=== PATIENT | male | born 1950 | race Caucasian/White ===

== ENCOUNTER 2019-02-09 22:42 | Inpatient (IN) | payer MEDICARE ==
[~2019-02-09] VITALS: Ht 160 cm; Wt 59.0 kg
--- NOTE | 2019-02-09 23:31 | NUR ---
Sitter at bedside
[2019-02-09 23:33] LABS: BASOPHILS % (AUTO) 0.5 % (0.0-2.0); EOSINOPHILS # (AUTO) 0.3 K/uL (0.0-0.7); EOSINOPHILS % (AUTO) 3.2 % (0.0-7.0); HEMATOCRIT 39.3 % (36.7-47.1); HEMOGLOBIN 13.2 g/dL (12.5-16.3); LYMPHOCYTES # (AUTO) 2.6 K/uL (20.0-40.0); LYMPHOCYTES % (AUTO) 29.6 % (20.5-51.5); MEAN CORPUSCULAR HEMOGLOBIN 29.9 uug (23.8-33.4); MEAN CORPUSCULAR HGB CONC 34 g/dL (32.5-36.3); MEAN CORPUSCULAR VOLUME 88.9 fL (73.0-96.2); MONOCYTES # (AUTO) 0.8 K/uL (2.0-10.0); MONOCYTES % (AUTO) 9.5 % (0.0-11.0); NEUTROPHILS % (AUTO) 57.2 % (38.5-71.5); PLATELET COUNT (AUTO) 301 K/uL (152-348); RED BLOOD CELL COUNT(AUTO) 4.42 MIL/uL (4.06-5.63); WHITE BLOOD COUNT (AUTO) 8.8 K/uL (3.6-10.2)
[2019-02-09 23:45] LABS: CARBON DIOXIDE 25 mmol/L (21-32); CHLORIDE 102 mmol/L (98-107); CREATININE 0.9 mg/dL (0.6-1.3); GLUCOSE 100 mg/dL (74-106); POTASSIUM 3.6 mmol/L (3.5-5.1); UREA NITROGEN, BLOOD 7 mg/dL (7-18)
[2019-02-09 23:51] LABS: *BILIRUBIN,URIN 2+ (NEGATIVE); *BLOOD, URINE NEGATIVE (NEGATIVE); *COLOR,URINE YELLOW (YELLOW); *KETONES,URINE 4+ (NEGATIVE); LEUKOCYTE ESTERASE ,URINE TRACE (NEGATIVE); NITRITE, URINE NEGATIVE (NEGATIVE); UGLUCOSE NEGATIVE (NEGATIVE)
[2019-02-10] LABS: ALANINE AMINOTRANSFERASE 17 U/L (16-63); ALKALINE PHOSPHATASE 48 U/L (50-136); ASPARTATE AMINOTRANSFERASE 12 U/L (15-37); BILIRUBIN,DIRECT 0.2 mg/dL (0.0-0.2); BILIRUBIN,TOTAL 0.5 mg/dL (0.2-1.0); TOTAL PROTEIN, SERUM 6.5 g/dL (6.4-8.2)
[2019-02-10 00:01] LABS: ACETAMINOPHEN < 2.0 ug/mL (10-30)
[2019-02-10 00:05] LABS: *CLARITY,URINE CLEAR (CLEAR)
[2019-02-10 00:09] LABS: BACTERIA,URINE NONE SEEN /HPF (NONE SEEN); RBC,URINE 0-3 /HPF (0-3); SQUAMOUS EPITHELIAL CELL,UR FEW /HPF (NONE SEEN)
[2019-02-10 00:19] LABS: ETHANOL < 3 MG/DL (0-0)
--- NOTE | 2019-02-10 00:40 | NUR ---
pt cooperative and alert now but not oriented. pt answers "i dont know" to all orientation questions. denies pain and is calm. pt has 5150 sent from [employer]
[2019-02-10 00:59] LABS: THYROID STIMULATING HORMONE 3.491 mIU/mL (0.358-3.740)
--- NOTE | 2019-02-10 01:41 | NUR ---
no distress color good. report given to huan in bsu. and pt brought to floor with tech
[2019-02-10] MEDS ORDERED: ACETAMINOPHEN 325 MG TABLET PO PRN (01:45)
[2019-02-10] MEDS ORDERED: MAGNESIUM HYDROXIDE 30 ML LIQUID UDC PO PRN (01:45)
[2019-02-10] MEDS ORDERED: MAG HYDROX/AL HYDROX/SIMETH 30 ML LIQUID UDC PO PRN (01:45)
--- NOTE | 2019-02-10 02:42 | NUR ---
RECEIVED TO CARE, FROM THE ER, ON A 72 HOLD FOR GRAVELY DISABLED, A TRANSFER FROM [facility]. ACCORDING TO THE CHART AND HOLD, HE WAS FOUND WANDERING IN THE COMMUNITY. HE LIVES WITH HIS GIRLFRIEND, WHO TOOK HIM TO THE [facility], WHERE HE WAS FOUND TO BE MORE CONFUSED THAN USUAL. SHE TOOK HIM TO THE ER, WHERE HE WAS PLACED ON A HOLD. ACCORDING TO THE HOLD, HE STATED HE NO LONGER WISHED TO EAT, BECAUSE HE WAS GUILTY ABOUT POOR PEOPLE. 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 UPON ARRIVAL, HE WAS CONFUSED AND DISHEVELED/MALODOROUS. DENIED SUICIDAL OR HOMICIDAL IDEATIONS. UNABLE TO PROVIDE ANY INFORMATION, EVEN ABOUT WHERE HE IS, THE DATE, OR YEAR. HE WAS THEN ASSITED WITH A SHOWER, AND PLACED IN BED. OF THIS TIME, HE REMAINS ASLEEP. NO DISTRESS NOTED.
[2019-02-10 07:30] VITALS: BP 95/59
[2019-02-10] MEDS ORDERED: CEPH500C2 PO (11:23)
[2019-02-10] MEDS ORDERED: TAMS-3 PO (11:27)
[2019-02-10] MEDS ORDERED: DOXA2TAB2 PO (11:27)
[2019-02-10] MEDS ORDERED: CITA40TA11 PO (11:27)
[2019-02-10] MEDS ORDERED: CLON0.5T12 PO (11:43)
[2019-02-10] MEDS ORDERED: LEVO25TA9 PO (11:43)
[2019-02-10] MEDS ORDERED: AMIT10TA6 PO (11:43)
[2019-02-10] MEDS ORDERED: VENL37.515 PO (11:43)
[2019-02-10] MEDS: risperiDONE 0.5 MG TABLET PO SCH ×2 (12:47→21:18)
[2019-02-10 16:00] VITALS: BP 93/65
[2019-02-10] MEDS: VENLAFAXINE XR 37.5 MG CAP.SR.24H PO SCH (17:42)
[2019-02-10 20:00] VITALS: BP 117/67
[2019-02-10] MEDS: TEMAZEPAM 7.5 MG CAPSULE PO PRN (22:53)
[2019-02-11] MEDS: LEVOTHYROXINE SODIUM 25 MCG TABLET PO SCH (07:32)
[2019-02-11] MEDS: DOXAZOSIN 2 MG TABLET PO SCH (08:27)
[2019-02-11] MEDS: risperiDONE 0.5 MG TABLET PO SCH ×2 (08:27→20:20)
[2019-02-11] MEDS: TAMSULOSIN HCL 0.4 MG CAP.SR.24H PO SCH (08:27)
[2019-02-11] MEDS: VENLAFAXINE XR 37.5 MG CAP.SR.24H PO SCH ×2 (08:27→16:58)
[2019-02-11 10:40] VITALS: BP 103/69
[2019-02-11 15:37] VITALS: BP 110/71
--- NOTE | 2019-02-11 19:01 | NUR ---
Noted to be extremely anxious this afternoon. Offered to give ativan but refused to take it. Pt feeling scared and shaky, stated he is scared to be homeless. Pt's room mate continuously screaming and pt appears to be scared. will cont to monitor.
[2019-02-11] MEDS: LORAZEPAM 0.5 MG TABLET PO PRN (19:37)
[2019-02-11 20:00] VITALS: BP 115/71
[2019-02-11] MEDS: TEMAZEPAM 7.5 MG CAPSULE PO PRN (22:02)
[2019-02-12] MEDS: LEVOTHYROXINE SODIUM 25 MCG TABLET PO SCH (06:21)
[2019-02-12 07:30] VITALS: BP 110/65
[2019-02-12] MEDS: risperiDONE 0.5 MG TABLET PO SCH ×2 (08:50→20:24)
[2019-02-12] MEDS: TAMSULOSIN HCL 0.4 MG CAP.SR.24H PO SCH (08:50)
[2019-02-12] MEDS: VENLAFAXINE XR 37.5 MG CAP.SR.24H PO SCH ×2 (08:50→17:26)
[2019-02-12] MEDS: DOXAZOSIN 2 MG TABLET PO SCH (08:51)
--- NOTE | 2019-02-12 12:52 | NUR ---
patient continues intermittently delusional throughout am, verbalizing he his bleeding down his inner thigh patient pulling open pants and showing nurse his thigh are. No blood noted, patient redirected , continues to report visual hallucination of blood running down inner thigh, continue to provide reality reorientation.
--- NOTE | 2019-02-12 13:21 | NUR ---
Social work contacted pts significant other Chuyita Mayra ([phone]) for further information regarding social work evaluation. Pt gave consent for SW to contact Chuyita Nunez. Chuyita provided sufficient information regarding pts hx and current mental health. Pts significant other is active in his care.
--- NOTE | 2019-02-12 15:09 | NUR ---
1:1 session note: GOAL Patient will participate in the group discussion of the day or actively listen to other peers responses. INTERVENTION Social Work Diesel Fitter Mechanic invited patient to participate in a group discussion held from 2:00-2:45 pm in the activities room. Social Work Diesel Fitter Mechanic facilitated a discussion with patient. SW Diesel Fitter Mechanic explored what the patient wishes could be different as a result of their stay at [facility]. SW Diesel Fitter Mechanic validated patient's perceived barriers to education and a better life. SW Diesel Fitter Mechanic helped patient reframe patient's perspective about his situation and life in general. SW Diesel Fitter Mechanic supported the patient's hope to improve his lifestyle upon discharge. RESPONSE Patient was the only one who attended group today. Patient expressed interest in participating in the discussion. The patient remains fixated on the delusional ideation that he is close to experiencing homelessness. In addition, the patient believes that he was not able to further his education due to his speech impediment (stuttering) and mental retardation and therefore had to resort to homelessness. However, patients medical records do not indicate that the patient suffers from any cognitive delay. Patient expressed agreement that individuals with speech impediments may still succeed. The patient stated that he is happy to have interactions with people like social workers as it makes him feel welcomed. Patient remained calm and cooperative throughout discussion. PLAN Patient will be invited to attend the next group discussion.
[2019-02-12 16:00] VITALS: BP 160/80
[2019-02-12 16:20] VITALS: BP 144/64
[2019-02-12 17:51] VITALS: BP 119/69
[2019-02-12 20:28] VITALS: BP 108/66
[2019-02-12] MEDS: TEMAZEPAM 7.5 MG CAPSULE PO PRN (21:05)
[2019-02-13] MEDS: LEVOTHYROXINE SODIUM 25 MCG TABLET PO SCH (06:12)
--- NOTE | 2019-02-13 06:27 | NUR ---
GPS: Nursing Notes: Hours of Sleep: Patient slept 6 hours and 30 minutes.
[2019-02-13 07:30] VITALS: BP 110/66
[2019-02-13] MEDS: DOXAZOSIN 2 MG TABLET PO SCH (08:25)
[2019-02-13] MEDS: VENLAFAXINE XR 37.5 MG CAP.SR.24H PO SCH ×2 (08:26→17:00)
[2019-02-13] MEDS: risperiDONE 0.5 MG TABLET PO SCH ×2 (08:26→20:00)
[2019-02-13] MEDS: TAMSULOSIN HCL 0.4 MG CAP.SR.24H PO SCH (08:26)
[2019-02-13 16:32] VITALS: BP 106/65
--- NOTE | 2019-02-13 19:30 | NUR ---
GPS: Rec'd pt in the dining room eating dinner and watching TV. No s/s of acute distress noted. A&O x2-3. Poor insight with his illness, refused to answer when asked. Denies visual or auditory hallucinations. Does not appear to be responding to internal stimuli. All safety precautions in place. Will cont to monitor.
[2019-02-13 20:24] VITALS: BP 110/67
[2019-02-14] MEDS: LEVOTHYROXINE SODIUM 25 MCG TABLET PO SCH (06:14)
--- NOTE | 2019-02-14 06:43 | NUR ---
GPS Nursing Note: Pt slept x6.30 hrs. Took am meds. Mushtaq well. No s/s of acute distress noted. Will endorse to oncoming shift.
[2019-02-14 07:30] VITALS: BP 104/65
[2019-02-14] MEDS: risperiDONE 0.5 MG TABLET PO SCH ×2 (08:32→20:42)
[2019-02-14] MEDS: TAMSULOSIN HCL 0.4 MG CAP.SR.24H PO SCH (08:32)
[2019-02-14] MEDS: VENLAFAXINE XR 37.5 MG CAP.SR.24H PO SCH ×2 (08:32→17:15)
[2019-02-14] MEDS: DOXAZOSIN 2 MG TABLET PO SCH (08:33)
[2019-02-14 16:00] VITALS: BP 125/66
[2019-02-14 20:18] VITALS: BP 129/67
[2019-02-15] MEDS: LEVOTHYROXINE SODIUM 25 MCG TABLET PO SCH (05:57)
[2019-02-15 07:30] VITALS: BP 112/66
[2019-02-15] MEDS: TAMSULOSIN HCL 0.4 MG CAP.SR.24H PO SCH (08:45)
[2019-02-15] MEDS: risperiDONE 0.5 MG TABLET PO SCH ×2 (08:45→18:13)
[2019-02-15] MEDS: VENLAFAXINE XR 37.5 MG CAP.SR.24H PO SCH ×2 (08:45→18:12)
[2019-02-15] MEDS: DOXAZOSIN 2 MG TABLET PO SCH (08:47)
--- NOTE | 2019-02-15 10:09 | NUR ---
Initial Discharge Instructions: Patient is currently living at home with his significant other Chuyita at [address] [facility], [address]. Per pt he is requesting to return home with his significant other. Social work spoke with Chuyita who stated pt is welcome back home once stabilized cleared from MHU. ALLIE will continue to collaborate with pt, family, and MD regarding most appropriate discharge plans for this patient. SW will form a safe and proper discharge plan.
--- NOTE | 2019-02-15 10:45 | NUR ---
pest control worker reached out to pts significant other Chuyita Nunez ([phone]) for pt update. Provided most up to date information regarding pts current state. Pts significant other is requesting that pt be put on Latuda medication per pts medical doctor prior to pts admission to [facility]. Chuyita stated that pt was prescribed Latunda 20mg for 7 days and next 7 days 40mg, Chuyita also stated she has also spoke with Charge Nurse Randi and she is aware. pest control worker informed pts significant other that social work will note request and forward request for MD to contact her. Addendum: 02/15/19 at 1052 by BEKA KELLEY Pt's MD Doctor Narayan was notified of significant others request for medication inquire and call back, contact number also provided.
[2019-02-15 16:00] VITALS: BP 94/61
[2019-02-15 20:27] VITALS: BP 112/72
[2019-02-15] MEDS: TEMAZEPAM 7.5 MG CAPSULE PO PRN (23:33)
--- NOTE | 2019-02-16 00:29 | NUR ---
Patient refusing to go into room. Wont speak and just wondering around the valero. Multiple attempts to redirect to the room. In danielle chair at nurses station at this time. Still no verbalization only a blank stare. Continuing to monitor for safety and will attempt to put in bed when patient seems ready. Crackers and a sleeping pill given. No acute distress at this time.
--- NOTE | 2019-02-16 01:15 | NUR ---
Patient in bed sleeping. No distress. Continuing to monitor and frequent rounding being done.
[2019-02-16] MEDS: LEVOTHYROXINE SODIUM 25 MCG TABLET PO SCH (06:17)
[2019-02-16 07:30] VITALS: BP 115/71
[2019-02-16] MEDS: risperiDONE 0.5 MG TABLET PO SCH ×2 (08:07→13:05)
[2019-02-16] MEDS: TAMSULOSIN HCL 0.4 MG CAP.SR.24H PO SCH (08:07)
[2019-02-16] MEDS: VENLAFAXINE XR 37.5 MG CAP.SR.24H PO SCH ×2 (08:07→18:08)
[2019-02-16] MEDS: DOXAZOSIN 2 MG TABLET PO SCH (08:08)
[2019-02-16 16:00] VITALS: BP 143/73
[2019-02-16 19:53] VITALS: BP 120/73
[2019-02-16] MEDS: risperiDONE 1 MG TABLET PO SCH (20:07)
[2019-02-16] MEDS ORDERED: risperiDONE 0.5 MG TABLET PO SCH (21:00)
[2019-02-17] MEDS: LEVOTHYROXINE SODIUM 25 MCG TABLET PO SCH (06:08)
[2019-02-17 07:30] VITALS: BP 105/83
[2019-02-17] MEDS: VENLAFAXINE XR 37.5 MG CAP.SR.24H PO SCH ×2 (08:38→16:02)
[2019-02-17] MEDS: TAMSULOSIN HCL 0.4 MG CAP.SR.24H PO SCH (08:38)
[2019-02-17] MEDS: risperiDONE 1 MG TABLET PO SCH ×2 (08:38→20:10)
[2019-02-17] MEDS: DOXAZOSIN 2 MG TABLET PO SCH (08:39)
[2019-02-17] MEDS: LORAZEPAM 0.5 MG TABLET PO PRN (15:55)
[2019-02-17 16:00] VITALS: BP 138/85
[2019-02-17 20:08] VITALS: BP 118/71
[2019-02-18] MEDS: LEVOTHYROXINE SODIUM 25 MCG TABLET PO SCH (06:10)
--- NOTE | 2019-02-18 06:56 | NUR ---
PT SLEPT 8.0 HRS DURING SHIFT. TAKEN ALL ROUTINE MEDS. NO AGITATION OBSERVED.
[2019-02-18 07:30] VITALS: BP 104/70
[2019-02-18] MEDS: risperiDONE 1 MG TABLET PO SCH ×2 (08:12→20:29)
[2019-02-18] MEDS: VENLAFAXINE XR 37.5 MG CAP.SR.24H PO SCH ×2 (08:12→16:48)
[2019-02-18] MEDS: TAMSULOSIN HCL 0.4 MG CAP.SR.24H PO SCH (08:12)
[2019-02-18] MEDS: DOXAZOSIN 2 MG TABLET PO SCH (08:12)
[2019-02-18] MEDS: BENZTROPINE MESYLATE 0.5 MG TABLET PO SCH ×2 (13:57→16:48)
[2019-02-18 16:00] VITALS: BP 151/97
[2019-02-18] MEDS: LORAZEPAM 0.5 MG TABLET PO PRN (16:48)
[2019-02-18 20:23] VITALS: BP 101/68
[2019-02-19] MEDS: LEVOTHYROXINE SODIUM 25 MCG TABLET PO SCH (06:03)
[2019-02-19 07:30] VITALS: BP 105/51
[2019-02-19] MEDS: VENLAFAXINE XR 37.5 MG CAP.SR.24H PO SCH ×2 (09:05→16:22)
[2019-02-19] MEDS: risperiDONE 1 MG TABLET PO SCH ×2 (09:05→20:25)
[2019-02-19] MEDS: DOXAZOSIN 2 MG TABLET PO SCH (09:06)
[2019-02-19] MEDS: BENZTROPINE MESYLATE 0.5 MG TABLET PO SCH ×2 (09:06→16:22)
[2019-02-19] MEDS: TAMSULOSIN HCL 0.4 MG CAP.SR.24H PO SCH (09:06)
--- NOTE | 2019-02-19 15:47 | NUR ---
Discharge Planning Note: SW placed call to patient's significant other, Chuyita ([phone]) to discuss discharge planning. Per Chuyita, "He's not ready to come home, that's for sure." SW discussed discharge options with Chuyita about SNF placement. Pt's SO agreed to SNF placement for the patient. ALLIE faxed SNF inquiries to: [facility] [ j; ] [facility] [ ; ] Awaiting response from facilities. ALLIE will continue to follow-up.
--- NOTE | 2019-02-19 16:34 | NUR ---
Firearms Report: ALLIE completed and submitted [employer] Firearms report for 5250 GD certification.
[2019-02-19 16:43] VITALS: BP 115/68
[2019-02-19 20:14] VITALS: BP 125/72
--- NOTE | 2019-02-19 21:44 | NUR ---
RECEIVED PATIENT IN A JUSTINE CHAIR IN ACTIVITY ROOM EVEN THOUGH HE IS ABLE TO AMBULATE. REFUSED TO ANSWER QUESTIONS ASKED AND OCCASIONALLY STARES OUT THROUGH THE GLASS DOOR. HE TOOK HIS MEDS WITH NO ADVERSE REACTION NOTED. NO COMPLIANT OF PAIN OR DISCOMFORT. SAFETY MEASURES IN PLACE. WILL CONTINUE WITH MONITORING.
[2019-02-20] MEDS: LEVOTHYROXINE SODIUM 25 MCG TABLET PO SCH (06:18)
--- NOTE | 2019-02-20 06:31 | NUR ---
SLEPT FOR APPROX. 6HRS.
[2019-02-20 07:42] VITALS: BP 106/63
[2019-02-20 08:32] VITALS: BP 106/63
[2019-02-20] MEDS: TAMSULOSIN HCL 0.4 MG CAP.SR.24H PO SCH (08:32)
[2019-02-20] MEDS: risperiDONE 1 MG TABLET PO SCH (08:32)
[2019-02-20] MEDS: DOXAZOSIN 2 MG TABLET PO SCH (08:32)
[2019-02-20] MEDS: VENLAFAXINE XR 37.5 MG CAP.SR.24H PO SCH (08:32)
[2019-02-20] MEDS: BENZTROPINE MESYLATE 0.5 MG TABLET PO SCH (08:32)
--- NOTE | 2019-02-20 09:54 | NUR ---
Discharge Note: Patient will be discharged to [facility] [Address: [address], [place] [address]; ] via ambulance at 1pm. Spoke with Nida at the facility who states they are ready to accept the patient today. Spoke with patients significant other, Chuyita ([phone]) who is aware and agreeable with discharge plans. Patient is alert and oriented x2 and is cooperative. Patient will follow-up at the facility with Dr. Alonzo (Inspector Hairspring Truing) and Dr. Narayan (Psychiatrist). Patient was provided with outpatient mental health resources to [facility] ([phone]); [facility] ([phone]); [facility] ([phone]); and National Suicide Prevention Lifeline . Patients family was referred to the [employer] ([phone]).
--- NOTE | 2019-02-20 15:15 | NUR ---
GPS: Nursing Notes: Discharge Notes: Patient is awake and responding to his name, cooperative with nursing care, compliant with his medications, following staff directions, denies any SI/HI, denies any AH/VH, denies any pain or discomfort, denies any SOB, discharge to [facility] at [address], [place] [id number] , report given to Julia, RN supervisor engraving, took all his belongings with him, transported to facility via ambulance. oncology social worker spoke with patients significant other, Chuyita ([phone]) who is aware and agreeable with discharge plans. Patient will follow-up at the facility with Dr. Alonzo (Medical Laboratory Manager) and Dr. Narayan (Psychiatrist). Patient was provided with outpatient mental health resources to [facility] ([phone]); [facility] ([phone]); [facility] ([phone]); and National Suicide Prevention Lifeline . Patients family was referred to the [employer] ([phone]).
== END 2019-02-20 15:15 | DRG 885 ==
LOC: ER 22:44 → GPS 02-10 01:09
PROVIDERS: ADMIT Psychiatry & Neurology Psychiatry
DX: F25.8 Other schizoaffective disorders (principal); E78.5 Hyperlipidemia, unspecified; E03.9 Hypothyroidism, unspecified; Z87.440 Personal history of urinary (tract) infections; N40.0 Benign prostatic hyperplasia without lower urinary tract symptoms; I10 Essential (primary) hypertension; Z91.83 Wandering in diseases classified elsewhere
CPT/HCPCS: 36415; 70030-TC; 70450; 71045; 83605; 84443; 85025; 85730; 87040; 87086; 93005; A4663; G0480; G0480-TC

== ENCOUNTER 2020-02-26 23:25 | Inpatient (IN) | payer MEDICARE, OTHER ==
[~2020-02-26] VITALS: Ht 165.1 cm; Wt 55.3 kg
[~2020-02-26 23:25] MED LIST: AMIT10TA6 PO; CEPH500C2 PO; CITA40TA11 PO; CLON0.5T4 PO; DOXA2TAB2 PO; LEVO25TA9 PO; TAMS-3 PO; VENL37.510 PO
--- NOTE | 2020-02-26 23:57 | NUR ---
US sent to ER Lab at this time. Derrick Hand at bedside for blood draw.
[2020-02-27] LABS: *BILIRUBIN,URIN NEGATIVE (NEGATIVE); *BLOOD, URINE NEGATIVE (NEGATIVE); *COLOR,URINE YELLOW (YELLOW); *KETONES,URINE NEGATIVE (NEGATIVE); *UROBILINOGEN,URINE 0.2 E.U./dl (NORMAL); LEUKOCYTE ESTERASE ,URINE TRACE (NEGATIVE); NITRITE, URINE NEGATIVE (NEGATIVE); UGLUCOSE NEGATIVE (NEGATIVE)
[2020-02-27 00:09] LABS: *CLARITY,URINE HAZY (CLEAR)
[2020-02-27 00:11] LABS: BACTERIA,URINE NONE SEEN /HPF (NONE SEEN); MUCUS,URINE FEW /LPF (0-FEW); RBC,URINE 0-3 /HPF (0-3); SQUAMOUS EPITHELIAL CELL,UR FEW /HPF (NONE SEEN); WBC,URINE 20-50 /HPF (0-3)
[2020-02-27] MEDS ORDERED: CEPH500C2 PO (00:14)
[2020-02-27] MEDS ORDERED: ARIP20TA4 PO (00:14)
[2020-02-27] MEDS ORDERED: DOXA2TAB2 PO (00:14)
[2020-02-27] MEDS ORDERED: LOVA20TA2 PO (00:14)
[2020-02-27] MEDS ORDERED: OLAN10TA23 PO (00:14)
[2020-02-27 00:16] LABS: BASOPHILS # (AUTO) 0.1 K/uL (0.0-8.0); BASOPHILS % (AUTO) 0.8 % (0.0-2.0); EOSINOPHILS # (AUTO) 0.3 K/uL (0.0-0.7); EOSINOPHILS % (AUTO) 3.6 % (0.0-7.0); HEMATOCRIT 32.3 % (36.7-47.1); HEMOGLOBIN 11.6 g/dL (12.5-16.3); LYMPHOCYTES # (AUTO) 3.5 K/uL (20.0-40.0); LYMPHOCYTES % (AUTO) 36.3 % (20.5-51.5); MEAN CORPUSCULAR HEMOGLOBIN 32.2 uug (23.8-33.4); MEAN CORPUSCULAR HGB CONC 36 g/dL (32.5-36.3); MEAN CORPUSCULAR VOLUME 89.8 fL (73.0-96.2); MONOCYTES # (AUTO) 0.8 K/uL (2.0-10.0); MONOCYTES % (AUTO) 7.9 % (0.0-11.0); NEUTROPHILS # (AUTO) 4.9 K/uL (1.8-8.9); NEUTROPHILS % (AUTO) 51.4 % (38.5-71.5); PLATELET COUNT (AUTO) 602 K/uL (152-348); RED BLOOD CELL COUNT(AUTO) 3.59 MIL/uL (4.06-5.63); WHITE BLOOD COUNT (AUTO) 9.5 K/uL (3.6-10.2)
[2020-02-27 00:26] LABS: BILIRUBIN,DIRECT 0.1 mg/dL (0.0-0.2); BILIRUBIN,TOTAL 0.2 mg/dL (0.2-1.0); CREATININE 1.1 mg/dL (0.6-1.3); POTASSIUM 3.9 mmol/L (3.5-5.1); TOTAL PROTEIN, SERUM 6.4 g/dL (6.4-8.2)
[2020-02-27] MEDS ORDERED: NITROFURANTOIN/NITROFURAN MAC 100 MG CAPSULE ONE (00:43)
[2020-02-27] MEDS ORDERED: NITROFURANTOIN/NITROFURAN MAC 100 MG CAPSULE PO ONE (00:45)
--- NOTE | 2020-02-27 00:45 | NUR ---
Report given to Francia IRENE on Psych Overflow/Med SUrg
--- NOTE | 2020-02-27 01:22 | NUR ---
Pt. admitted to [facility]HU , under care of Dr. Florian/Sena Rosales List completed
--- NOTE | 2020-02-27 01:30 | NUR ---
Pt was brought in to floor via wheelchair. Admitted to [facility] psych overflow under Dr. Florian/ Sena. Pt a/o x 3. Denies SI. Will initiate admission assessments.
[2020-02-27 01:40] VITALS: BP 96/49
[2020-02-27] MEDS ORDERED: BLOOD SUGAR DIAGNOSTIC 1 EACH STRIP VI ONE (01:45)
[2020-02-27] MEDS ORDERED: MAGNESIUM HYDROXIDE 30 ML LIQUID UDC PO PRN (01:45)
[2020-02-27] MEDS ORDERED: ACETAMINOPHEN 325 MG TABLET PO PRN (01:45)
[2020-02-27] MEDS ORDERED: MAG HYDROX/AL HYDROX/SIMETH 30 ML LIQUID UDC PO PRN (01:45)
[2020-02-27] MEDS ORDERED: TEMAZEPAM 7.5 MG CAPSULE PO PRN (01:45)
--- NOTE | 2020-02-27 05:59 | NUR ---
Pt slept 2 hrs , no c/o pain. Continue on 1:1 sitter.
[2020-02-27 08:00] VITALS: BP 92/51
--- NOTE | 2020-02-27 13:00 | NUR ---
pt refused to eat lunch
--- NOTE | 2020-02-27 14:40 | NUR ---
SW Family Contact: SW spoke with patient significant other, Chuyita Nnuez ([phone]) who stated that they have been living together for a long time and the patient has had previous psych admissions at [facility]. Chuyita stated that she would like for the patient to go to a jail after the hospital before the patient returns home to make sure he is fully stable before returning home.
[2020-02-27 15:00] VITALS: BP 125/56
--- NOTE | 2020-02-27 15:02 | NUR ---
ALLIE Initial Discharge Note: Pt currently lives at home with his significant other Chuyita Nunez ([phone]) at [address] [place] [address] [address] [facility], [address]. Per Chuyita, she would like patient to go to a fci upon discharge before returning home. ALLIE will continue to work with patient, family, and MD to ensure a safe and proper discharge plan.
--- NOTE | 2020-02-27 15:40 | NUR ---
Social Work Firearms Report (DOJ): Filtrose Crusher completed and submitted a [employer] firearms report for 5150 grave disability certification. A copy of report has been placed in patient chart.
[2020-02-27] MEDS: CEphaleXIN 500 MG CAPSULE PO SCH (16:09)
--- NOTE | 2020-02-27 18:05 | NUR ---
pt is refusing to eat dinner pt is very depressed
[2020-02-27 19:30] VITALS: BP 128/68
[2020-02-27] MEDS: ATORVASTATIN 20 MG TABLET PO SCH (20:24)
[2020-02-27] MEDS: HALOPERIDOL 5 MG TABLET PO SCH ×2 (20:30→21:21)
[2020-02-27] MEDS: BENZTROPINE MESYLATE 1 MG TABLET PO SCH ×2 (20:30→21:21)
--- NOTE | 2020-02-27 22:36 | NUR ---
patient received at beginning of shift lying in bed with 1:1 sitter at bedside. answers to only some questions but not all. most of the questions patient remains silent with no affect or expression. Lipitor taken with no problem. non compliant with luba and michael that MD lucas prescribed tonight. wasted in pyxis. 14 day hold noted starting today. no s/s of SI/HI at this time. no acute distress noted and v/s stable. safety measures in place. will continue to monitor throughout the night.
[2020-02-28] MEDS: LEVOTHYROXINE SODIUM 25 MCG TABLET PO SCH ×2 (06:24→06:31)
[2020-02-28 07:49] VITALS: BP 137/71
--- NOTE | 2020-02-28 08:00 | NUR ---
received pt resting in bed with 1:1 sitter at bedside. pt. has flat affect, pt is mute does not reply to any questions and stares blankly. Pt. is not cooperative with plan of care. Pt. is refusing medication. Pt. is combative grabbing and kicking sitter. Will provide pt. with therapeutic milieu, decrease noise. pt is on 14 day hold for GD. no s/s of SI/HI at this time. no acute distress noted and v/s stable. safety measures in place. will continue to monitor
[2020-02-28] MEDS: DOXAZOSIN 2 MG TABLET PO SCH (09:00)
[2020-02-28] MEDS ORDERED: TAMSULOSIN HCL 0.4 MG CAP.SR.24H PO SCH (09:00)
[2020-02-28] MEDS: CEphaleXIN 500 MG CAPSULE PO SCH ×2 (09:00→18:08)
[2020-02-28] MEDS: HALOPERIDOL 5 MG TABLET PO SCH ×3 (09:22→18:08)
[2020-02-28] MEDS: LORAZEPAM 1 MG TABLET PO PRN (09:22)
[2020-02-28] MEDS: BENZTROPINE MESYLATE 1 MG TABLET PO SCH ×3 (09:22→18:08)
--- NOTE | 2020-02-28 10:07 | NUR ---
pt. combative towards sitter. provided pt. with psych medication. Security called to pts. room. MHU childcare attendant called. Called Dr. Florian and left message. Will continue to monitor pt. and see how psych medications work and update MHU childcare attendant.
--- NOTE | 2020-02-28 14:06 | NUR ---
Pt. is verbal and now responding to questions. Pt. is paranoid and doesn't believe he is in a real hospital with real nurses and doctors. pt. spoke to girlfriend olive over the phone who instructed him to take his medications. Explained risks and benefits of medication. Pt. refused. Tried back within an hour. Pt. refused again.
--- NOTE | 2020-02-28 16:42 | NUR ---
called to give report to charge authorizer Gena. Pt. will go to [address]
[2020-02-28 16:46] VITALS: BP 113/60
[2020-02-28] MEDS: ATORVASTATIN 20 MG TABLET PO SCH (21:00)
[2020-02-28 21:40] VITALS: BP 101/62
[2020-02-29] MEDS: LEVOTHYROXINE SODIUM 25 MCG TABLET PO SCH (07:00)
[2020-02-29 07:30] VITALS: BP 94/50
[2020-02-29] MEDS: DOXAZOSIN 2 MG TABLET PO SCH (08:06)
[2020-02-29] MEDS: CEphaleXIN 500 MG CAPSULE PO SCH ×2 (08:27→17:09)
[2020-02-29] MEDS: BENZTROPINE MESYLATE 1 MG TABLET PO SCH ×3 (08:27→17:09)
[2020-02-29] MEDS: HALOPERIDOL 5 MG TABLET PO SCH ×3 (08:27→17:09)
--- NOTE | 2020-02-29 11:21 | NUR ---
Received patient this am laying in bed. When asked to take his medications the response was " I cant , my mouth is too dry ". After some encouragement and education, patient agreed to take medications. Manpreet was held d/t low blood pressure. Patient is ambulatory but stays in room most of the morning. Patient did however agree to shower. Prior to showering, patient was malodorous and had not washed in "Many days". Continuing to monitor patients medication compliance , monitor for behavior escalation and for safety. No acute distress noted at this time.
[2020-02-29 15:29] VITALS: BP 86/70
--- NOTE | 2020-02-29 17:14 | NUR ---
Patients B/P is noted on the low side today. Patient is asymptomatic and denies dizziness when ambulating. Spoke with patient and encouraged fluids. Patient said " I do not want to drink because it makes me have to pee all the time". Educated patient on the fact he has a UTI and the benefits of increasing fluids. Patient verbalized understanding but continues to need reinforcement. Monitoring VS and will treat as needed. Patients behavior is calm so far today and patient has been compliant with antibiotics.
--- NOTE | 2020-02-29 20:00 | NUR ---
b/p is now 116/51, hr 93.
[2020-02-29 20:11] VITALS: BP 116/51
--- NOTE | 2020-02-29 21:00 | NUR ---
pt refused po fluids. juices and fresh water left at bedside.
[2020-02-29] MEDS ORDERED: HALOPERIDOL 1 MG TABLET PO SCH (21:31)
[2020-02-29] MEDS: ATORVASTATIN 20 MG TABLET PO SCH (21:59)
[2020-02-29] MEDS: TAMSULOSIN HCL 0.4 MG CAP.SR.24H PO SCH (21:59)
--- NOTE | 2020-02-29 23:00 | NUR ---
received to care, lying in his bed, eyes open, but minimally interactive. received several telephone calls this evening. continues to refuse all medications. appears distracted by internal stimuli. observed to be standing at the doorway to his room, peeking out, suspiciously. reality orientation and emotional support provided, but he continues to isolate. also observed pacing the hallway a few times, but still does not interact. as of 2299, he appears to be asleep. no distress noted. will continue to monitor closely.
--- NOTE | 2020-03-01 06:00 | NUR ---
slept 1 hour total
[2020-03-01] MEDS: LEVOTHYROXINE SODIUM 25 MCG TABLET PO SCH (07:00)
[2020-03-01] MEDS: HALOPERIDOL 5 MG TABLET PO SCH ×3 (09:00→20:17)
[2020-03-01] MEDS: CEphaleXIN 500 MG CAPSULE PO SCH ×2 (09:00→17:00)
[2020-03-01] MEDS: BENZTROPINE MESYLATE 1 MG TABLET PO SCH ×3 (09:00→17:00)
[2020-03-01] MEDS: DOXAZOSIN 2 MG TABLET PO SCH (09:00)
--- NOTE | 2020-03-01 12:28 | NUR ---
GPS: patient AOx1 , patient refuse medication, refused VS , patient pacing in the hallway, patient responding to internal stimuli, will continue monitor
--- NOTE | 2020-03-01 13:32 | NUR ---
patient been pacing and would stand by the doorway most of the time, patient was put on gerichair so that patient will able to sit still, offered jello and snacks , patients poor intake, calm however refused his medication
[2020-03-01] MEDS: LORAZEPAM 1 MG TABLET PO PRN (13:38)
[2020-03-01 16:00] VITALS: BP 103/53
--- NOTE | 2020-03-01 18:22 | NUR ---
patient went back to his room, refused his dinner, ate 3 scoops of ice cream, patient been getting phone call from girl friend, patient paranoid and labile, constant redirection needed, will continue monitor
[2020-03-01] MEDS: TAMSULOSIN HCL 0.4 MG CAP.SR.24H PO SCH (20:17)
[2020-03-01] MEDS: ATORVASTATIN 20 MG TABLET PO SCH (20:17)
[2020-03-01 20:31] VITALS: BP 112/65
--- NOTE | 2020-03-01 23:30 | NUR ---
RECEIVED PATIENT IN HIS ROOM WHO LATER CAME OUT PUSHING HIS BEDSIDE TABLE AND ASKING WHERE HIS ROOM WAS. HE WAS RE DIRECTED BACK. HE LATER LAID IN BED AND APPEARED DISTRACTED, CONFUSED AND SUSPICIOUS.HE WAS SELECTIVE WITH HIS MEDS AND REFUSED THE FLOMAX.HE SAID "THAT'S ALL MY THROAT WILL TAKE'.ENCOURAGED TO EAT BUT TOOK ONLY 2 SPOONFULS OF PUDDING.WILL CONTINUE TO MONITOR FOR SAFETY.
[2020-03-02] MEDS: LEVOTHYROXINE SODIUM 25 MCG TABLET PO SCH (06:17)
--- NOTE | 2020-03-02 06:25 | NUR ---
HE SLEPT FOR 06;30HRS. WAS MED COMPLIANT THIS MORNING WITH A LOT OF EDUCATION.HE ALSO TOOK A SHOWER.
[2020-03-02 07:30] VITALS: BP 98/64
[2020-03-02] MEDS: DOXAZOSIN 2 MG TABLET PO SCH (08:12)
[2020-03-02] MEDS: CEphaleXIN 500 MG CAPSULE PO SCH ×2 (08:13→16:45)
[2020-03-02] MEDS: HALOPERIDOL 5 MG TABLET PO SCH ×3 (08:13→20:44)
[2020-03-02] MEDS: BENZTROPINE MESYLATE 1 MG TABLET PO SCH ×3 (08:13→16:45)
--- NOTE | 2020-03-02 08:57 | NUR ---
Received patient sitting on edge of the bed. Awake , alert and oriented. Patient attempted to hide his medications in his gown but nurse saw him and patient then took the medications. B/p is low this am again, HTN medication was held. Patient is talkative and encouragement given to participate in group later. Monitoring for safety and anxiety. Patient appears to be somewhat suspicious today.Fluids also provided with encouragement to drink.
[2020-03-02 16:34] VITALS: BP 97/65
--- NOTE | 2020-03-02 20:00 | NUR ---
RECEIVED PATIENT IN HIS BED. HE IS NOTED AWAKE A/O X 1. POOR HISTORIAN, ABLE TO HAVE A MEANINGFUL CONVERSATION. HE IS NOTED SUSPICIOUS, AND GUARDED. AFFECT IS FLAT, MOOD IS LOW, BEHAVIOR IS LABILE. V/S STABLE AT THIS TIME. PATIENT IS REASSURED FOR HER SAFETY. SAFETY AND FALL PRECAUTION IN PLACE. WILL CONTINUE TO MONITOR.
[2020-03-02 20:06] VITALS: BP 101/60
[2020-03-02] MEDS: TAMSULOSIN HCL 0.4 MG CAP.SR.24H PO SCH ×2 (20:44→21:00)
[2020-03-02] MEDS: ATORVASTATIN 20 MG TABLET PO SCH ×2 (20:44→21:00)
--- NOTE | 2020-03-02 22:00 | NUR ---
AFTER MULTIPLE ATTEMPTS AND REDIRECTIONS, PATIENT WAS ABLE TO TAKE HIS HALDOL 10MG QHS; HOWEVER, HE REFUSED LIPITOR AND FLOMAX. PATIENT WAS TOLD THE RISK AND BENEFITS OF COMPLIANCE WITH MEDICATION REGIMENT; HOWEVER, INEFFECTIVE. WE WILL CONTINUE TO MONITOR.
[2020-03-03] MEDS: LEVOTHYROXINE SODIUM 25 MCG TABLET PO SCH (06:13)
--- NOTE | 2020-03-03 06:47 | NUR ---
Patient slept for approx. 8 hrs through the night. He refused Synthroid QAM. multiple redirection given with the benefits and risk explained to pt, yet ineffective. Although, Patient is able to ambulate without assistance, he was found with urine all over his bed and gown. he was helped to clean his skin and put new clean gown and pants. His bed was also changed. patient was encouraged to use the bathroom instead of urinating in his bed. Will continue to monitor closely.
[2020-03-03 07:30] VITALS: BP 86/50
[2020-03-03] MEDS: CEphaleXIN 500 MG CAPSULE PO SCH ×2 (08:52→17:00)
[2020-03-03] MEDS: DOXAZOSIN 2 MG TABLET PO SCH (09:00)
[2020-03-03] MEDS: HALOPERIDOL 5 MG TABLET PO SCH ×3 (09:00→20:36)
[2020-03-03] MEDS: BENZTROPINE MESYLATE 1 MG TABLET PO SCH ×3 (09:00→17:00)
--- NOTE | 2020-03-03 12:42 | NUR ---
PATIENT REFUSED ALL HIS MORNING MEDICATION, HOWEVER ATE HIS BREAKFAST, PATIENT ISOLATIVE AND STAYED IN HIS ROOM MOST OF THE TIME, RESPONDING TO INTERNAL STIMULI, BIZARRE BEHAVIOR, NO DISTRESS AT THIS TIME
--- NOTE | 2020-03-03 13:00 | NUR ---
ALLIE Brief Individual Counseling: precision layout worker met with patient and provided brief individual counseling to address the patient's presenting problem, disorganized thought process. Patient presents isolative and withdrawn. Patient continues to remain to himself and uncooperative with care. SW educated patient on the importance of accepting care while in the hospital and self-care. Patient is dismissive and selectively hearing this insurance underwriter sales. Patient is not very responsive and not engaging in a meaningful conversation. precision layout worker will meet with patient at a later time and continue to remain available for supportive counseling.
[2020-03-03 20:00] VITALS: BP 114/68
[2020-03-03] MEDS: ATORVASTATIN 20 MG TABLET PO SCH (20:43)
[2020-03-03] MEDS: TAMSULOSIN HCL 0.4 MG CAP.SR.24H PO SCH (20:43)
--- NOTE | 2020-03-03 23:15 | NUR ---
received to care, isolative in his bed, no interactions with peers noted. compliant with his bedtime dose of haldol. refused all other scheduled medications. attempted to cheek the haldol, but did swalllow it, with some encouragement. remains paranoid and suspicious. food and fluids left at bedside, but he would not take anything, even when told everything is sealed. spoke with his girlfriend on the phone. as of 2299, he appears to be intermittently asleep. no distress noted.
--- NOTE | 2020-03-04 06:00 | NUR ---
slept 8.0 hours, total. refused AM synthroid. no distress noted.
[2020-03-04] MEDS: LEVOTHYROXINE SODIUM 25 MCG TABLET PO SCH (06:41)
[2020-03-04 07:30] VITALS: BP 95/57
--- NOTE | 2020-03-04 08:00 | NUR ---
RECIEVED PT WATCHING TV IN THE [id number] ROOM. AWAKE, ALERT AND ORIENTEDX3. APPEARS IN GOOD SPIRIT. NO APPARENT DISTRESS NOTED,
[2020-03-04] MEDS: DOXAZOSIN 2 MG TABLET PO SCH (09:00)
[2020-03-04] MEDS: CEphaleXIN 500 MG CAPSULE PO SCH ×2 (09:03→17:27)
[2020-03-04] MEDS: HALOPERIDOL 5 MG TABLET PO SCH (09:07)
[2020-03-04] MEDS: BENZTROPINE MESYLATE 1 MG TABLET PO SCH ×3 (09:07→17:27)
--- NOTE | 2020-03-04 11:00 | NUR ---
SEEN AND EXAMINED BY DR NIELSON WITH NEW ORDERS.
[2020-03-04 16:00] VITALS: BP 114/63
--- NOTE | 2020-03-04 18:00 | NUR ---
PT HAS BEEN VERY COMPLIANT IN TAKING HIS MEDICATIONS ALL DAY. EATING GOOD ALL DAY.
[2020-03-04] MEDS: ATORVASTATIN 20 MG TABLET PO SCH (20:05)
[2020-03-04] MEDS: risperiDONE 0.5 MG TABLET PO SCH (20:05)
[2020-03-04 20:10] VITALS: BP 122/72
[2020-03-04] MEDS: TAMSULOSIN HCL 0.4 MG CAP.SR.24H PO SCH (20:12)
[2020-03-04] MEDS ORDERED: risperiDONE 0.5 MG TABLET PO SCH (21:00)
--- NOTE | 2020-03-04 22:00 | NUR ---
received to care, lying in bed, pleasant upon approach. compliant with most of his medications, including his psychotropic medications. observed to be in day room with peers for a short time, but did not interact. po fluids given and encouraged. snack was given, but he ate minimally. as of 2200, he appears to be asleep. no distress noted. will continue to monitor closely.
--- NOTE | 2020-03-05 06:00 | NUR ---
slept 7.5 hours, total. is now awake, in the tv room, watching tv, and eating crackers/ drinking apple juice. is now more talkative. no distress noted.
[2020-03-05 07:30] VITALS: BP 98/53
--- NOTE | 2020-03-05 07:30 | NUR ---
RECIEVED PT IN THE ROOM, AWAKE, ALERT AND ORIENTED X2. VERBALLY RESPONSIVE AND APPEARS IN GOOD SPIRIT. AMBULATED TO THE BATHROOM WITHOUT ANY PROBLEM. DENIES ANY SUICIDAL THOUGHTS AT THIS TIME.
[2020-03-05] MEDS: DOXAZOSIN 2 MG TABLET PO SCH (09:00)
[2020-03-05] MEDS: BENZTROPINE MESYLATE 1 MG TABLET PO SCH ×2 (09:01→12:51)
[2020-03-05] MEDS: CEphaleXIN 500 MG CAPSULE PO SCH (09:01)
[2020-03-05] MEDS: risperiDONE 0.5 MG TABLET PO SCH (09:01)
--- NOTE | 2020-03-05 09:30 | NUR ---
PT IS COMPLIANT IN TAKING HIS MEDICATIONS.
[2020-03-05] MEDS: LEVOTHYROXINE SODIUM 25 MCG TABLET PO SCH (09:32)
--- NOTE | 2020-03-05 14:00 | NUR ---
PT IS IN THE GROUP THERAPY SESSION AND IS PARTICIPATING WELL.
--- NOTE | 2020-03-05 15:05 | NUR ---
ALLIE Brief Individual Counseling: gas plant worker met with patient and provided brief individual counseling to address the patient's presenting problem, disorganized thought process. patient presents with withdrawn mood and flat affect. Patient shared that he has been engaging with peers in the activity room. patient has been less isolative and participating in group activities. Patient presents with better insight into his presenting problem. Patient has been more compliant with self-care. gas plant worker encouraged patient to share his feelings and concerns. Patient stated "I want to go home". This keno writer/runner assured patient he will return home upon discharge. SW will continue to provide supportive counseling.
[2020-03-05 16:00] VITALS: BP_SYST 102; BP_SYST 104; BP_DIAS 60; BP_DIAS 65
--- NOTE | 2020-03-05 17:30 | NUR ---
PT IS ALREADY ON REISE. BUT PT HAS BEEN COMPLIANT WITH HIS MEDICATIONS.
[2020-03-05 19:48] VITALS: BP 98/55
[2020-03-05] MEDS: ATORVASTATIN 20 MG TABLET PO SCH (20:54)
[2020-03-05] MEDS: TAMSULOSIN HCL 0.4 MG CAP.SR.24H PO SCH (20:55)
[2020-03-05] MEDS ORDERED: HALOPERIDOL LACTATE 5 MG/1 ML VIAL IM PRN (21:00)
[2020-03-05] MEDS ORDERED: risperiDONE 0.5 MG TABLET PO SCH (21:00)
[2020-03-05] MEDS: risperiDONE 1 MG TABLET PO SCH (21:27)
[2020-03-06] MEDS: LEVOTHYROXINE SODIUM 25 MCG TABLET PO SCH (06:08)
[2020-03-06 07:30] VITALS: BP 95/58
[2020-03-06] MEDS: DOXAZOSIN 2 MG TABLET PO SCH (09:00)
[2020-03-06] MEDS: risperiDONE 1 MG TABLET PO SCH ×2 (09:12→20:45)
--- NOTE | 2020-03-06 11:14 | NUR ---
Received patient this am standing in the valero. Upset that " My teeth are giving me an infection in my head'. Oriented patient to the reality of the situation and encourage patient not to use that as an excuse to be noncompliant with medications. Patients B/P trending on the low side, therefore am medications for HTN held. Oral fluids encouraged with minimal response. Patient appears anxious and still paranoid but manageable. Patient on Riese, no shot needed to be given so far this shift. Continuing to monitor patients VS, monitor for safety and medication compliance.
--- NOTE | 2020-03-06 15:24 | NUR ---
ALLIE Family Contact: ALLIE spoke with patient significant other, Chuyita Nunez ([phone]) and discussed discharge planning. This tag writer informed Chuyita of the patient current condition and level of stability and the possibility of the patient returning home upon discharge rather a group home facility as the patient doesn't demonstrate a skilled need at this time. Chuyita shared that she is open to accepting the patient back home and will come pick him up to take him home when he is ready. This tag writer stated that after care appointment with a psychiatrist will be set up for the patient before returning home. Chuyita was happy about this.
[2020-03-06 15:26] VITALS: BP 101/55
[2020-03-06 20:00] VITALS: BP 104/69
[2020-03-06] MEDS: TAMSULOSIN HCL 0.4 MG CAP.SR.24H PO SCH (20:45)
[2020-03-06] MEDS: ATORVASTATIN 20 MG TABLET PO SCH (20:46)
--- NOTE | 2020-03-06 22:00 | NUR ---
received to care, initially sitting in day room with peers, pleasant upon approach. compliant with medications and staff direction. appetite was good this evening, drinking several apple juices, 2 apple sauces, and several packages of crackers. as of 2200, he appears to be asleep. no distress noted. will continue to monitor closely.
--- NOTE | 2020-03-07 06:00 | NUR ---
slept 6.0hours, total. is now awake, in bed, drinking apple juice. no distress noted.
[2020-03-07] MEDS: LEVOTHYROXINE SODIUM 25 MCG TABLET PO SCH (06:15)
[2020-03-07 07:30] VITALS: BP 90/53
[2020-03-07] MEDS: DOXAZOSIN 2 MG TABLET PO SCH (09:00)
[2020-03-07] MEDS: risperiDONE 1 MG TABLET PO SCH ×2 (09:11→20:19)
[2020-03-07] MEDS: SERTRALINE HCL 50 MG TABLET PO SCH (09:11)
--- NOTE | 2020-03-07 13:00 | NUR ---
ALLIE Brief Individual Counseling: cannery worker met with patient and provided brief individual counseling to address the patient's presenting problem, disorganized thought process. Patient presents with low affect and guarded mood. cannery worker attempted to provide supportive counseling however patient stated that he is feeling "okay" and would like to discuss in group. SW encouraged group interaction with peers and this feature writer. Patient stated that he enjoys group and talking with his peers. This feature writer provided continuous encouragement and ongoing support.
[2020-03-07 15:35] VITALS: BP 96/62
[2020-03-07] MEDS: ATORVASTATIN 20 MG TABLET PO SCH (20:19)
[2020-03-07] MEDS: TAMSULOSIN HCL 0.4 MG CAP.SR.24H PO SCH (20:19)
[2020-03-07 20:49] VITALS: BP 96/60
[2020-03-08] MEDS: LEVOTHYROXINE SODIUM 25 MCG TABLET PO SCH (06:12)
[2020-03-08 07:30] VITALS: BP 98/54
[2020-03-08] MEDS: SERTRALINE HCL 50 MG TABLET PO SCH (08:50)
[2020-03-08] MEDS: risperiDONE 1 MG TABLET PO SCH ×2 (08:50→20:22)
[2020-03-08] MEDS: DOXAZOSIN 2 MG TABLET PO SCH (08:54)
--- NOTE | 2020-03-08 11:57 | NUR ---
GPS/RN: PT A/OX1, RESPONSIVE VERBALLY AND ABLE TO MAKE SOME NEEDS KNOWN BUT CONFUSE. PT WAS VERY SUSPICIOUS WITH HIS CARE AND MEDICATIONS THIS MORNING, SAYING THIS THINGS WILL KILL ME!. ABLE TO CONVINCE PT THAT THE MEDICATIONS WILL ONLY HELP HIM RATHER. PT TOOK ROUTINE MEDS AND EAT BREAKFAST, OFFER WATER TOLERATED. NO OTHER BEHAVIOR AT THIS TIME, OTHER THAN FREQUENTLY WALKING FROM ROOM TO ACTIVITY ROOM. WILL CONTINUE TO MONITOR.
[2020-03-08] MEDS: TAMSULOSIN HCL 0.4 MG CAP.SR.24H PO SCH (20:21)
[2020-03-08 20:22] VITALS: BP 106/64
[2020-03-08] MEDS: ATORVASTATIN 20 MG TABLET PO SCH (20:22)
[2020-03-09] MEDS: LEVOTHYROXINE SODIUM 25 MCG TABLET PO SCH (06:08)
[2020-03-09 07:30] VITALS: BP 90/51
--- NOTE | 2020-03-09 07:52 | NUR ---
GPS: received patient AOx1, labile, responding to internal stimuli, denies any pain, no distress at this time
[2020-03-09] MEDS: risperiDONE 1 MG TABLET PO SCH ×2 (08:08→20:07)
[2020-03-09] MEDS: SERTRALINE HCL 50 MG TABLET PO SCH (08:08)
[2020-03-09] MEDS: DOXAZOSIN 2 MG TABLET PO SCH (09:00)
[2020-03-09 15:12] VITALS: BP 90/55
--- NOTE | 2020-03-09 17:37 | NUR ---
Patient remain calm, redirectable, complied with medication, patient denies SI and HI, patient in no distress , will continue monitor
[2020-03-09] MEDS: ATORVASTATIN 20 MG TABLET PO SCH (20:07)
[2020-03-09] MEDS: TAMSULOSIN HCL 0.4 MG CAP.SR.24H PO SCH (20:07)
[2020-03-09 20:20] VITALS: BP 91/51
[2020-03-10] MEDS: LEVOTHYROXINE SODIUM 25 MCG TABLET PO SCH (06:05)
[2020-03-10 07:58] LABS: BASOPHILS # (AUTO) 0.1 K/uL (0.0-8.0); BASOPHILS % (AUTO) 0.8 % (0.0-2.0); EOSINOPHILS # (AUTO) 0.2 K/uL (0.0-0.7); EOSINOPHILS % (AUTO) 3.5 % (0.0-7.0); HEMATOCRIT 31.7 % (36.7-47.1); HEMOGLOBIN 10.8 g/dL (12.5-16.3); LYMPHOCYTES # (AUTO) 2.1 K/uL (20.0-40.0); MEAN CORPUSCULAR HEMOGLOBIN 30.4 uug (23.8-33.4); MEAN CORPUSCULAR HGB CONC 34 g/dL (32.5-36.3); MEAN CORPUSCULAR VOLUME 89.4 fL (73.0-96.2); MONOCYTES # (AUTO) 0.6 K/uL (2.0-10.0); MONOCYTES % (AUTO) 8.3 % (0.0-11.0); NEUTROPHILS % (AUTO) 57.4 % (38.5-71.5); PLATELET COUNT (AUTO) 324 K/uL (152-348); RED BLOOD CELL COUNT(AUTO) 3.54 MIL/uL (4.06-5.63)
[2020-03-10 08:00] VITALS: BP 104/65
[2020-03-10 08:14] LABS: CREATININE 0.8 mg/dL (0.6-1.3); PHOSPHOROUS 3.3 mg/dL (2.5-4.9)
[2020-03-10] MEDS: risperiDONE 1 MG TABLET PO SCH ×2 (08:57→20:31)
[2020-03-10] MEDS: SERTRALINE HCL 50 MG TABLET PO SCH (08:57)
[2020-03-10] MEDS: DOXAZOSIN 2 MG TABLET PO SCH (08:57)
--- NOTE | 2020-03-10 14:41 | NUR ---
Patient observe in bed most of the time. isolated and confused. Patient took medication without difficulty. Consume food fairly during meals. no signs of suicidal ideation. no agitation and behavioral problem during 1;1 conversation during rounds noted. will continue monitor
[2020-03-10 16:00] VITALS: BP 90/51
[2020-03-10 20:31] VITALS: BP 92/52
[2020-03-10] MEDS: ATORVASTATIN 20 MG TABLET PO SCH (20:31)
[2020-03-10] MEDS: TAMSULOSIN HCL 0.4 MG CAP.SR.24H PO SCH (20:31)
--- NOTE | 2020-03-10 23:00 | NUR ---
RECEIVED PATIENT IN THE ACTIVITY ROOM BUT NOT INTERACTING WITH PEERS. HE IS NOTED SUSPICIOUS,CONFUSED AND GUARDED. AFFECT IS FLAT, MOOD IS LOW,AND BEHAVIOR IS LABILE. TOOK HIS MEDS BUT ROLLED AROUND THE FLOMAX FOR SOME TIME. INITIALLY REFUSED BUT AFTER MUCH EXPLANATIONS HE TOOK THEM. PATIENT IS REASSURED FOR HIS SAFETY AND FALL PRECAUTION IN PLACE. WILL CONTINUE TO MONITOR.
[2020-03-11] MEDS: LEVOTHYROXINE SODIUM 25 MCG TABLET PO SCH (06:05)
--- NOTE | 2020-03-11 06:15 | NUR ---
HE SLEPT WELL FOR ABOUT 8:30HRS. TOOK A SHOWER AND WAS MED COMPLIANT.
[2020-03-11 07:36] VITALS: BP 95/55
[2020-03-11] MEDS: risperiDONE 1 MG TABLET PO SCH ×2 (08:39→20:21)
[2020-03-11] MEDS: DOXAZOSIN 2 MG TABLET PO SCH (08:41)
[2020-03-11] MEDS: SERTRALINE HCL 50 MG TABLET PO SCH (08:41)
--- NOTE | 2020-03-11 13:20 | NUR ---
ALLIE Family Contact: ALLIE spoke with [facility] ([phone]) who has agreed to provide transportation for the patient upon discharge back home. This underwriter put in the request and will follow up with a scheduled transportation. ALLIE spoke with patient significant other, Chuyita Nunez ([phone]) and informed of the patient's transportation and discharge set for .
--- NOTE | 2020-03-11 16:14 | NUR ---
ALLIE Coordination of Care: ALLIE spoke with Ce general service technician at [facility] ([phone]) who was following up with patient's discharge plans. Ce will follow up with transportation services and give this auto service writer a call back.
[2020-03-11 16:27] VITALS: BP 98/52
--- NOTE | 2020-03-11 18:41 | NUR ---
Patient seen participates on activity room. Patient good appearance and grooming noted. No agitation noted. Patient compliant with oral medication. not in distress. no complaint voiced during 1:1 conversation. will continue monitor
[2020-03-11 19:50] VITALS: BP 95/52
[2020-03-11] MEDS: TAMSULOSIN HCL 0.4 MG CAP.SR.24H PO SCH (20:21)
[2020-03-11] MEDS: ATORVASTATIN 20 MG TABLET PO SCH (20:21)
--- NOTE | 2020-03-11 20:54 | NUR ---
GPS/RN: PT RECEIVED IN ACTIVITY ROOM, A/OX2, DENIED SI, OR THOUGHT OF HARM TO SELF OR OTHERS, PT AWARE OF BEING D/C HOME TOMORROW AND SEEM TO BE VERY EXCITED. PT IN TV/ACTIVITY ROOM NOT FULLY PARTICIPATING OR INFRACTING WITH PEERS BUT ACTIVELY ENGAGED IN PLAYING PUZZLE GAMES BY HIMSELF. COOPERATIVE WITH ROUTINE MEDICATIONS. CALM AND NO BEHAVIOR NOTED AT THIS TIME. WILL CONTINUE MONITOR WITH Q/15MINS HEAD COUNT ONGOING.
--- NOTE | 2020-03-12 06:17 | NUR ---
PT PRN RESTORIL AT 2341. REASSESSED AND NOTED EFFECTIVENESS. PT SLEPT WELL, NO NEW C/O DURING SHIFT.
[2020-03-12] MEDS: LEVOTHYROXINE SODIUM 25 MCG TABLET PO SCH (06:34)
[2020-03-12 08:00] VITALS: BP 100/47
[2020-03-12] MEDS: SERTRALINE HCL 50 MG TABLET PO SCH (08:42)
[2020-03-12] MEDS: risperiDONE 1 MG TABLET PO SCH ×2 (08:42→21:09)
[2020-03-12] MEDS: DOXAZOSIN 2 MG TABLET PO SCH (08:44)
--- NOTE | 2020-03-12 09:53 | NUR ---
ALLIE Coordination of Care: ALLIE followed up and spoke with Navid Pappas ([phone]) from [facility] to schedule transportation for the patient back home from the hospital upon discharge tomorrow. Navid stated that he will give this technical proposal writer a call back by 11am today.
--- NOTE | 2020-03-12 14:37 | NUR ---
Social Work Note: public welfare worker contacted Navid ([phone]) and canceled patient's transportation for 03/13 because patient is accepted to [facility].
[2020-03-12 16:00] VITALS: BP 91/51
[2020-03-12 19:58] VITALS: BP 96/52
[2020-03-12 21:03] VITALS: BP 108/60
[2020-03-12] MEDS: ATORVASTATIN 20 MG TABLET PO SCH (21:09)
[2020-03-12] MEDS: TAMSULOSIN HCL 0.4 MG CAP.SR.24H PO SCH (21:09)
--- NOTE | 2020-03-12 21:28 | NUR ---
PATIENT RECEIVED IN BED AWAKE. PATIENT COMPLAINT WITH MEDICATION. NO AGGRESSIVE OR COMBATIVE BEHAVIOR NOTED WILL CONTINUED TO MONITOR. SAFE ENVIRONMENT PROVIDED, FREQUENT ROUNDING, AND CLUTTER FREE ENVIRONMENT. BED IN LOWEST POSITION, BED LOCKED, AND BED ALARM ON WHILE IN BED.
[2020-03-13] MEDS: LEVOTHYROXINE SODIUM 25 MCG TABLET PO SCH (06:11)
[2020-03-13 07:30] VITALS: BP 95/52
[2020-03-13 08:30] VITALS: BP 81/50
[2020-03-13] MEDS: DOXAZOSIN 2 MG TABLET PO SCH (08:30)
--- NOTE | 2020-03-13 08:31 | NUR ---
Social Work Discharge Note: Patient will be [place] [address]; ([phone]) via Ambulance transportation. Please arrange Ambulance transportation for patient to be picked up at 1:00am. Station Manager spoke with Pato, Ticket Counter at [facility]; ([phone]), who stated patient will be accepted at facility today. Patient is alert and oriented x2-3, and is not able to plan for self-care at this time, but is willing to accept care provided for her at the facility. Patient denies any suicidal or homicidal ideation. Patient is aware and agreeable with discharge plans. Patients significant other Chuyita, ([phone]) is aware and agreeable with discharge plans. Patient will continue to follow-up with her Psychiatrist Dr. Florian and Ordnance Engineering [place] [address]; ([phone]). Patient will follow-up at the center. Patient presents with euthymic mood and congruent affect. Addendum: 03/13/20 at 1145 by ALLIE WHITMORE Social Work Discharge Note: Patient will be [place] [address]; ([phone]) via Ambulance transportation. Please arrange Ambulance transportation for patient to be picked up at 1:00am. Station Manager spoke with Pato, Ticket Counter at [facility]; ([phone]), who stated patient will be accepted at facility today. Patient is alert and oriented x2-3, and is not able to plan for self-care at this time, but is willing to accept care provided for her at the facility. Patient denies any suicidal or homicidal ideation. Patient is aware and agreeable with discharge plans. Patients significant other Chuyita, ([phone]) is aware and agreeable with discharge plans. Patient will continue to follow-up with her Psychiatrist Dr. Melissa and Ordnance Engineering Technician Dr. Alonzo at [address] [address]; ([phone]). Patient will follow-up at the center. Patient presents with euthymic mood and congruent affect.
[2020-03-13] MEDS: SERTRALINE HCL 50 MG TABLET PO SCH (09:30)
[2020-03-13] MEDS: risperiDONE 1 MG TABLET PO SCH (09:30)
--- NOTE | 2020-03-13 11:38 | NUR ---
Gps/Bit Sharpener- Discharged planning in progress, patient was well informed about her discharge plan to [facility] facility [facility] .
--- NOTE | 2020-03-13 13:19 | NUR ---
Gps/Magnetic Resonance Imaging Director- Called [facility], called report to Liyah Parrish, patient was well informed of the dc. plan. Arranged picker/puller time for 1300. Patient in good spirit, all belongings given back to to patient, no new c/o offered.
== END 2020-03-13 13:53 | DRG 885 ==
LOC: ER 23:34 → GPSOV3 02-27 01:13 → MEDSURG3 02-27 01:13 → UNDOADMIN 02-27 01:13 → GPSOV3 02-27 12:12 → GPS 02-28 17:56
PROVIDERS: ADMIT Psychiatry & Neurology Psychiatry; ATTEND Hospitalist
DX: F29 Unspecified psychosis not due to a substance or known physiological condition (principal); N39.0 Urinary tract infection, site not specified; E44.0 Moderate protein-calorie malnutrition; Z68.1 Body mass index [BMI] 19.9 or less, adult; E03.9 Hypothyroidism, unspecified; F25.9 Schizoaffective disorder, unspecified; F32.9 Major depressive disorder, single episode, unspecified; Z91.19 Patient's noncompliance with other medical treatment and regimen; Z87.440 Personal history of urinary (tract) infections; Z73.6 Limitation of activities due to disability; D47.3 Essential (hemorrhagic) thrombocythemia; I10 Essential (primary) hypertension; E88.09 Other disorders of plasma-protein metabolism, not elsewhere classified; Z68.20 Body mass index [BMI] 20.0-20.9, adult; N40.1 Benign prostatic hyperplasia with lower urinary tract symptoms
CPT/HCPCS: 36415; 83605; 83735; 84100; 85025; 87040; 87086; A4663